=== PATIENT | female | born 1980 | race Caucasian/White ===

== ENCOUNTER 2024-04-28 13:21 | Outpatient (OUT) | payer OTHER, SELFPAY ==
--- NOTE | 2024-04-28 | XR_ITS ---
The [address] [address] Patient Name: STACY RASMUSSEN MRN: [id number] date: 1980 Sex: F Assigned Patient Location: [facility] Current Patient Location: Accession/Order Number: [id number] Exam Date: 04/28/2024 13:31 Report Date: 04/29/2024 08:20 At the request of: DOUG HERRMANN Procedure: XR foot LT min 3V PROCEDURE: XR foot LT min 3V HISTORY: LEFT FOOT PAIN COMPARISON: None. FINDINGS: BONES:Subtle thin lucency compatible with fracture line at lateral base of 5th metatarsal with adjacent cortical thickening. SOFT TISSUES:No visible soft tissue swelling. EFFUSION:None visible. OTHER: Negative. XR/XR foot LT min 3V IMPRESSION: 1. Early bone healing changes of stress fracture involving the 5th metatarsal. Electronically authenticated by: AFSHIN DEL REAL Date: 04/29/2024 08:20
== END 2024-04-28 13:22 | disposition home or self-care (01) ==
PROVIDERS: PCP Internal Medicine; Visit Provider Podiatrist Foot & Ankle Surgery
DX: M79.672 Pain in left foot (principal); S92.355D Nondisplaced fracture of fifth metatarsal bone, left foot, subsequent encounter for fracture with routine healing
CPT/HCPCS: 73630